=== PATIENT | male | born 1950 | race Caucasian/White ===

== ENCOUNTER 2017-06-09 07:13 | Day surgery (SDC) | payer MEDICARE ==
[~2017-06-09] VITALS: Ht 170.2 cm; Wt 67.0 kg
[~2017-06-09 07:13] MED LIST: ATOR20TA65 PO; LEVO50TA11 PO; SODIUM CHLORIDE 0.9% 1000ML 1,000 ML IV ONE
[2017-06-09 07:43] VITALS: BP 126/72
[2017-06-09] MEDS ORDERED: PROPOFOL 10 MG/ML 20ML VIAL IV ONE ×2 (09:55)
== END 2017-06-09 10:50 | disposition home or self-care (01) ==
LOC: ENDO 07:13 → DAH 07:13 → ENDO 10:50
PROVIDERS: ATTEND Internal Medicine Gastroenterology
DX: Z12.11 Encounter for screening for malignant neoplasm of colon (principal); N40.2 Nodular prostate without lower urinary tract symptoms; E78.5 Hyperlipidemia, unspecified; E03.9 Hypothyroidism, unspecified
CPT/HCPCS: A4606; G0121; J2704 ×2; J7030; G9654